=== PATIENT | male | born 1980 | race Caucasian/White ===

== ENCOUNTER → 2016-09-08 | Outpatient (REF) | payer OTHER, MEDICAID | LOC: M SFHCLERA 10:48 | PROVIDERS: ATTEND Physician Assistant | DX: M54.6 Pain in thoracic spine (principal) ==

== ENCOUNTER → 2016-09-08 | Outpatient (CLI) | payer OTHER ==
--- NOTE | 2016-09-08 10:49 | REP ---
KUB TWO VIEWS: HISTORY: Left-side pain. Air is present in small and large intestine. There are no air fluid levels or dilated loops of intestine. There is no pneumoperitoneum. A 10 mm calcification is present overlying the left kidney consistent with nephrolithiasis. IMPRESSION: Nonspecific bowel gas pattern. Signed by Juan Donnelly MD 09/08/2016 10:51 A
== END ==
LOC: M LRY 09:56
PROVIDERS: ATTEND Physician Assistant
DX: M54.14 Radiculopathy, thoracic region (principal)

== ENCOUNTER → 2016-09-22 | Outpatient (CLI) | payer OTHER | LOC: M RAD 13:45 | PROVIDERS: ATTEND Nurse Practitioner Family | DX: N20.0 Calculus of kidney (principal); K57.30 Diverticulosis of large intestine without perforation or abscess without bleeding ==

== ENCOUNTER → 2016-10-13 | Outpatient (REF) | payer OTHER, MEDICAID ==
[~2016-10-13] MED LIST: DITR5TAB PO; OXYC1TAB23 PO; TYLE325T5 PO
[2016-10-13 17:50] LABS: MEAN CORPUSCULAR HEMOGLOBIN 35.1 pg (27.0-33.0); MEAN CORPUSCULAR HGB CONC 34.3 g/dl (32.0-36.5); MEAN CORPUSCULAR VOLUME 102.3 fl (80.0-96.0); RED CELL DISTRIBUTION WIDTH 11.3 % (11.5-14.5); WHITE BLOOD COUNT 8.2 K/mm3 (4.0-10.0)
[2016-10-13 17:52] LABS: INR 1.04
[2016-10-13 18:49] LABS: ALBUMIN 3.7 GM/DL (3.2-5.2); ALBUMIN/GLOBULIN RATIO 1.19 (1.00-1.93); ALKALINE PHOSPHATASE 114 U/L (45-117); ALT/SGPT 40 U/L (12-78); ANION GAP 8 MEQ/L (8-16); AST/SGOT 23 U/L (15-37); BILIRUBIN,TOTAL 0.3 MG/DL (0.2-1.0); BLOOD UREA NITROGEN 12 MG/DL (7-18); CARBON DIOXIDE LEVEL 29 MEQ/L (21-32); CHLORIDE LEVEL 103 MEQ/L (98-107); CREATININE FOR GFR 1.11 MG/DL (0.70-1.30); GLOMERULAR FILTRATION RATE > 60.0 (>60); GLUCOSE, FASTING 82 MG/DL (70-105); POTASSIUM SERUM 4.1 MEQ/L (3.5-5.1); SODIUM LEVEL 140 MEQ/L (136-145); TOTAL PROTEIN 6.8 GM/DL (6.4-8.2)
[2016-10-17 00:15] LABS: Lyme Disease IgG Ab 18 kDa Ban Absent (.); Lyme Disease IgG Ab 23 kDa Ban Present (.); Lyme Disease IgG Ab 28 kDa Ban Absent (.); Lyme Disease IgG Ab 30 kDa Ban Absent (.); Lyme Disease IgG Ab 39 kDa Ban Absent (.); Lyme Disease IgG Ab 41 kDa Ban Present (.); Lyme Disease IgG Ab 45 kDa Ban Absent (.); Lyme Disease IgG Ab 58 kDa Ban Absent (.); Lyme Disease IgG Ab 66 kDa Ban Absent (.); Lyme Disease IgG Ab 93 kDa Ban Absent (.); Lyme Disease IgG West Blot Int Negative (.); Lyme Disease IgG/IgM Antibodie <0.91 ISR (0.00-0.90); Lyme Disease IgM Ab 23 kDa Ban Present (.); Lyme Disease IgM Ab 39 kDa Ban Absent (.); Lyme Disease IgM Ab 41 kDa Ban Absent (.); Lyme Disease IgM Ab Quantitati 2.59 index (0.00-0.79); Lyme Disease IgM West Blot Int Negative (.)
== END ==
LOC: M SFHCLERA 14:47
PROVIDERS: ATTEND Family Medicine
DX: Z01.812 Encounter for preprocedural laboratory examination (principal); A69.20 Lyme disease, unspecified; N20.0 Calculus of kidney

== ENCOUNTER → 2016-11-17 | Outpatient (REF) | payer MEDICAID, OTHER ==
[2016-11-17 17:36] LABS: MEAN CORPUSCULAR HEMOGLOBIN 34.7 pg (27.0-33.0); MEAN CORPUSCULAR VOLUME 99.1 fl (80.0-96.0); RED CELL DISTRIBUTION WIDTH 11.6 % (11.5-14.5); WHITE BLOOD COUNT 7.7 K/mm3 (4.0-10.0)
[2016-11-17 17:45] LABS: INR 0.93
[2016-11-17 19:47] LABS: ALBUMIN 3.9 GM/DL (3.2-5.2); ALBUMIN/GLOBULIN RATIO 1.26 (1.00-1.93); ALKALINE PHOSPHATASE 89 U/L (45-117); ALT/SGPT 54 U/L (12-78); ANION GAP 8 MEQ/L (8-16); AST/SGOT 23 U/L (15-37); BILIRUBIN,TOTAL 0.5 MG/DL (0.2-1.0); BLOOD UREA NITROGEN 10 MG/DL (7-18); CALCIUM LEVEL 9.1 MG/DL (8.5-10.1); CARBON DIOXIDE LEVEL 27 MEQ/L (21-32); CHLORIDE LEVEL 106 MEQ/L (98-107); CREATININE FOR GFR 0.84 MG/DL (0.70-1.30); GLOMERULAR FILTRATION RATE > 60.0 (>60); GLUCOSE, FASTING 82 MG/DL (70-105); POTASSIUM SERUM 4.2 MEQ/L (3.5-5.1); SODIUM LEVEL 141 MEQ/L (136-145)
== END ==
LOC: M LABSMT 11:18
PROVIDERS: ATTEND Nurse Practitioner Family
DX: N20.0 Calculus of kidney (principal); Z01.818 Encounter for other preprocedural examination

== ENCOUNTER → 2016-11-22 | Outpatient (CLI) | payer OTHER, MEDICAID ==
--- NOTE | 2016-11-22 12:46 | REP ---
PA and lateral chest: There are no comparisons. The lung jones are clear. The cardiac size is normal The thomas, mediastinum, and bony thorax are unremarkable. Impression: Negative PA and lateral chest. Signed by Hernandez Jeffery MD 11/22/2016 12:37 P
== END ==
LOC: M LRY 11:54
PROVIDERS: ATTEND Family Medicine
DX: Z01.810 Encounter for preprocedural cardiovascular examination (principal)

== ENCOUNTER → 2016-11-22 | Outpatient (REF) | payer OTHER, MEDICAID ==
[2016-11-22 18:23] LABS: ANION GAP 9 MEQ/L (8-16); BLOOD UREA NITROGEN 10 MG/DL (7-18); CARBON DIOXIDE LEVEL 27 MEQ/L (21-32); CHLORIDE LEVEL 107 MEQ/L (98-107); CREATININE FOR GFR 0.84 MG/DL (0.70-1.30); GLOMERULAR FILTRATION RATE > 60.0 (>60); GLUCOSE, FASTING 88 MG/DL (70-105); POTASSIUM SERUM 4.1 MEQ/L (3.5-5.1); SODIUM LEVEL 143 MEQ/L (136-145)
[2016-11-22 18:43] LABS: MEAN CORPUSCULAR HEMOGLOBIN 34.2 pg (27.0-33.0); MEAN CORPUSCULAR HGB CONC 33.2 g/dl (32.0-36.5); MEAN CORPUSCULAR VOLUME 102.8 fl (80.0-96.0); RED CELL DISTRIBUTION WIDTH 12.3 % (11.5-14.5); WHITE BLOOD COUNT 9.7 K/mm3 (4.0-10.0)
== END ==
LOC: M SFHCLERA 11:51
PROVIDERS: ATTEND Family Medicine
DX: Z01.812 Encounter for preprocedural laboratory examination (principal)

== ENCOUNTER 2016-11-29 08:38 | Inpatient (IN) | payer OTHER ==
[2016-11-29] VITALS (12 sets, daily range): BP systolic 121–153; BP diastolic 73–92; O2SAT 91–96
[~2016-11-29] VITALS: Ht 172.7 cm; Wt 77.1 kg
[2016-11-29] MEDS ORDERED: LR 1,000 ML IV ONE (08:45)
[2016-11-29] MEDS ORDERED: CONRAY-60 60% 50ML VIAL (Q9961) As Ordered ONE (12:05)
[2016-11-29] MEDS ORDERED: PROPOFOL 200 MG/20 ML VIAL As Ordered ONE (12:30)
[2016-11-29] MEDS ORDERED: MIDAZOLAM INJ 2 MG/2 ML VIAL (J2250) As Ordered ONE (12:30)
[2016-11-29] MEDS ORDERED: LIDOCAINE 2% INJ 100 MG/5 ML SDV (FOR ANES.) As Ordered ONE (12:30)
[2016-11-29] MEDS ORDERED: fentaNYL 100 MCG/2 ML INJECTION (J3010) As Ordered ONE (12:31)
[2016-11-29] MEDS ORDERED: ONDANSETRON 4MG/2ML VIAL (J2405) IV PRN ×2 (13:15→16:45)
[2016-11-29] MEDS ORDERED: PERCOCET 5MG/325MG TAB PO PRN ×3 (13:15→16:45)
[2016-11-29] MEDS ORDERED: ACETAMINOPHEN TAB 650MG DOSE (2X325MG) PO PRN (13:15)
[2016-11-29] MEDS ORDERED: MORPHINE 2 MG/ML 1ML SYRINGE IV PRN (13:15)
[2016-11-29] MEDS ORDERED: HYDROmorphone HCL 2 MG/ML 1ML VIAL (J1170) As Ordered ONE (14:09)
--- NOTE | 2016-11-29 16:17 | REP ---
C-ARM VIEWS ABDOMEN: Two C-ARM views of the abdomen are performed during intraoperative procedure performed by Dr. Willard. A nephroureterostomy tube is seen on the initial image. The second images shows a wire extending down the ureter with contrast partially opacifying the pelvicaliceal system. There appears to be a nephrostomy tube with the tip in the region of the renal pelvis. 2 minutes and 32 seconds of fluoroscopic time utilized. Signed by Hernandez Hall MD 11/29/2016 05:16 P
[2016-11-29 16:32] LABS: MEAN CORPUSCULAR HEMOGLOBIN 35.5 pg (27.0-33.0); MEAN CORPUSCULAR HGB CONC 35.5 g/dl (32.0-36.5); MEAN CORPUSCULAR VOLUME 100.2 fl (80.0-96.0); WHITE BLOOD COUNT 14.7 K/mm3 (4.0-10.0)
[2016-11-29] MEDS ORDERED: fentaNYL 100 MCG/2 ML INJECTION (J3010) IV PRN (16:45)
[2016-11-29] MEDS ORDERED: MEPERIDINE INJ 25 MG/ML VIAL (J2175) IV PRN (16:45)
[2016-11-29] MEDS ORDERED: METOCLOPRAMIDE INJ 10MG/2ML VIAL (J2765) IV PRN (16:45)
[2016-11-29] MEDS ORDERED: LR 1,000 ML IV SCH (16:45)
[2016-11-29] MEDS: NS 1,000 ML IV SCH (16:54)
[2016-11-29 17:16] LABS: ANION GAP 8 MEQ/L (8-16); BLOOD UREA NITROGEN 9 MG/DL (7-18); CALCIUM LEVEL 7.8 MG/DL (8.5-10.1); CARBON DIOXIDE LEVEL 26 MEQ/L (21-32); CHLORIDE LEVEL 111 MEQ/L (98-107); CREATININE FOR GFR 0.86 MG/DL (0.70-1.30); GLOMERULAR FILTRATION RATE > 60.0 (>60); GLUCOSE, FASTING 107 MG/DL (70-105); POTASSIUM SERUM 3.7 MEQ/L (3.5-5.1); SODIUM LEVEL 145 MEQ/L (136-145)
[2016-11-29] MEDS: DOCUSATE SODIUM 100 MG CAP PO SCH (20:13)
[2016-11-29] MEDS: ceFAZolin SOD 1 GM in D5W MINI-BAG PLUS 50 ML IV SCH (20:13)
[2016-11-30] VITALS: BP 114/65; O2SAT 97
[2016-11-30] MEDS: NS 1,000 ML IV SCH (03:46)
[2016-11-30 04:00] VITALS: BP 113/69; O2SAT 97
[2016-11-30] MEDS: ceFAZolin SOD 1 GM in D5W MINI-BAG PLUS 50 ML IV SCH (05:24)
[2016-11-30 07:19] LABS: MEAN CORPUSCULAR HEMOGLOBIN 34.7 pg (27.0-33.0); MEAN CORPUSCULAR HGB CONC 35.2 g/dl (32.0-36.5); MEAN CORPUSCULAR VOLUME 98.5 fl (80.0-96.0); RED CELL DISTRIBUTION WIDTH 11.5 % (11.5-14.5)
[2016-11-30 07:41] LABS: ANION GAP 6 MEQ/L (8-16); BLOOD UREA NITROGEN 7 MG/DL (7-18); CALCIUM LEVEL 8.9 MG/DL (8.5-10.1); CARBON DIOXIDE LEVEL 27 MEQ/L (21-32); CHLORIDE LEVEL 109 MEQ/L (98-107); GLOMERULAR FILTRATION RATE > 60.0 (>60); GLUCOSE, FASTING 104 MG/DL (70-105); POTASSIUM SERUM 3.9 MEQ/L (3.5-5.1); SODIUM LEVEL 142 MEQ/L (136-145)
[2016-11-30 08:00] VITALS: BP 128/70
--- NOTE | 2016-11-30 08:21 | IPNPDOC ---
Assessment/Plan Date Seen The patient was seen on 11/30/16. Patient Summary This is a 36 y/o M POD 1 s/p attempted left PCNL. He is doing well. Labs are w /i normal limits. UOP has been good. Plan/VTE VTE Prophylaxis Ordered?: Yes VTE Exclusion Mechanical Proph: N/A:VTE Prophy Ordered Plan/Urinary Catheter Urinary Catheter: D/C Figuerao Plan - left nephrostomy catheter removed this morning - will d/c Figueroa catheter in 1 hour - d/c IVF - percocet prn pain - regular diet - plan discharge home after patient voids Subjective Review oF Systems Chief Complaint The patient is a 36-year-old male admitted with a reason for visit of Nephrolithiasis. Events since Last Encounter No acute events o/n. Good pain control. No n/v. No f/c/ns. Objective Physical Examination General Exam: Alert, Cooperative, No Acute Distress Skin Exam: Nl turgor and temperature Neuro Exam: Normal Speech Psych Exam: Mental status NL, Mood NL Other physical findings catheter draining light pink urine; left nephrostomy tube draining dark pink urine; left flank incision w/o erythema Vital Signs/I&O Vital Signs Date Time Temp Pulse Resp B/P (MAP) Pulse Ox O2 Delivery O2 Flow Rate FiO2 11/30/16 04:00 97 Nasal Cannula 2.0 11/30/16 04:00 98.6 92 18 113/69 (84) I&O- Last 24 Hours up to 6 AM 11/30/16 05:59 Intake Total 5370 ml Output Total 2000 ml Balance 3370 ml Laboratory Data Labs 24H Laboratory Tests 2 11/29/16 16:19: Anion Gap 8, Glomerular Filtration Rate > 60.0, Blood Urea Nitrogen 9, Creatinine 0.86, Sodium Level 145, Potassium Level 3.7, Chloride Level 111H, Carbon Dioxide Level 26, Calcium Level 7.8L 11/30/16 06:59: Anion Gap 6L, Glomerular Filtration Rate > 60.0, Blood Urea Nitrogen 7, Creatinine 0.80, Sodium Level 142, Potassium Level 3.9, Chloride Level 109H, Carbon Dioxide Level 27, Calcium Level 8.9 CBC/BMP Laboratory Tests 11/29/16 16:19 Red Blood Count 3.89 L, Mean Corpuscular Volume 100.2 H, Mean Corpuscular Hemoglobin 35.5 H, Mean Corpuscular Hemoglobin Concent 35.5, Red Cell Distribution Width 12.0, Calcium Level 7.8 L 11/30/16 06:59 Red Blood Count 3.60 L, Mean Corpuscular Volume 98.5 H, Mean Corpuscular Hemoglobin 34.7 H, Mean Corpuscular Hemoglobin Concent 35.2, Red Cell Distribution Width 11.5, Calcium Level 8.9 EMILI GONCALVES MD Nov 30, 2016 08:21
[2016-11-30] MEDS: DOCUSATE SODIUM 100 MG CAP PO SCH (09:04)
[2016-11-30 09:48] VITALS: BP 113/69
[2016-11-30] MEDS ORDERED: OXYC1TAB23 PO (10:02)
[2016-11-30] MEDS ORDERED: TYLE325T5 PO (10:02)
--- NOTE | 2016-12-01 01:58 | RO ---
DATE OF PROCEDURE: 11/29/2016 PREPROCEDURE DIAGNOSIS: Left kidney stone. POSTPROCEDURE DIAGNOSIS: Left kidney stone. PROCEDURE: Attempted left percutaneous nephrolithotomy, left percutaneous panendoscopy, left antegrade nephrostogram with intraoperative interpretation of images, left ureteral stent placement. SURGEON: Dr. Clarence Willard DIGITAL ARCHIVIST: None. ANESTHESIA: General. OPERATIVE INDICATIONS: This is a 36-year-old male with a 1.4 cm left kidney stone. He was brought to the operating room today for a percutaneous nephrolithotomy for treatment of his left kidney stone. DESCRIPTION OF PROCEDURE: The patient was brought to the operating room and general anesthesia was induced. Prophylactic antibiotics were infused. He then had a Figueroa catheter placed under sterile conditions. He was then placed in a prone position in preparation for an attempted left percutaneous nephrolithotomy. Of note, the patient had a left nephroureteral stent placed previously by interventional radiology at [facility]. At this point, after the patient was prepped and draped, his previously placed nephroureteral stent was utilized to advance a super stiff guidewire down into the left collecting system. Of note, the patient's access to the kidney was through a mid pole calyx and not a lower pole calyx, which is what we normally do. At this point, after the wire was advanced down into the left collecting system, the nephroureteral stent was removed. An approximately 3-4 cm incision was made in the skin adjacent to the wire. A dual lumen ureteral catheter was then advanced down the left collecting system over the wire. An antegrade nephrostogram was performed, and it was negative for extravasation. Of note, the contrast did flow freely down into the ureter. At this point, the other lumen was utilized to advance a guidewire down the left collecting system. The dual lumen ureteral catheter was then removed leaving the two wires in place. The guidewire was secured to the drapes to serve as a safety wire. Next, a balloon dilator was advanced over the super stiff wire into the left collecting system. The balloon was then inflated and left in place for 30 seconds. I then advanced an access sheath over the balloon down into the left collecting system. The balloon was then let down and removed leaving the wire in place. I then went into the sheath, the nephroscope, and of note, this did not appear to have gained access into the kidney. I, therefore, removed the sheath and balloon dilated several additional times, and examined several additional times and at no point did it gain access into the renal pelvis. I tried to get access to each calyx. Of note, I was not able to torque the nephroscope to gain access to any of the calyces because of the mid pole access. After trying for approximately an hour and a half to gain access into the kidney, the decision was made to abort the procedure. At this point, the super stiff wire was utilized to advance a #7-Turkmen x 22-32 cm JJ ureteral stent down to the left collecting system. The wire was then removed and there were adequate curls of the stent in the left renal pelvis and in the bladder. Next, the access sheath was removed and the other wire was utilized to advance an #18-Turk[place] Good[place] Tip catheter down to the left collecting system. I then inflated the balloon with approximately 3 mL of contrast and then removed the wire. At this point, the nephrostomy catheter was secured to the skin with a #3-0 silk suture. The catheter was then connected to gravity drainage and dressings were applied. This marked the conclusion of the procedure. The patient was then taken out of prone position, awakened from anesthesia and transported to the recovery room in stable condition. Estimated blood loss was 50 mL. Complications: None. Specimens: None. Plan: The patient will be kept in the hospital overnight just to monitor for any potential bleeding. He will likely be discharged home tomorrow after his nephrostomy catheter and his Figueroa catheter are removed. The stent will be left in place. He will need to be brought back to the operating room at a later date, most likely for left ureteroscopy to try to treat his stone. ROSE MARIE
--- NOTE | 2016-12-01 17:41 | DSES ---
DATE OF ADMISSION: 11/29/2016 DATE OF DISCHARGE: 11/30/2016 ADMISSION DIAGNOSIS: Kidney stone. DISCHARGE DIAGNOSIS: Kidney stone. ADMITTING PHYSICIAN: Clarence Willard MD DISCHARGING PHYSICIAN: Clarence Willard MD PROCEDURE PERFORMED: Attempted left percutaneous nephrolithotomy. HISTORY OF PRESENT ILLNESS: This is a 36-year-old male with a large left kidney stone who was brought to the operating room on 11/29/2016 for attempted left percutaneous nephrolithotomy. He was admitted to the hospital postoperatively. HOSPITALIZATION COURSE: The patient's postoperative course was unremarkable. His pain was well-controlled with oral pain medications. On postoperative day one, all of his blood work was within normal limits. He is tolerating a regular diet. His left nephrostomy catheter was removed on postoperative day one. We subsequently removed his Figueroa catheter and he voided without any difficulty. He was subsequently discharged home in good condition on postoperative day one. The plan will be for him to followup in the clinic in a few weeks to discuss additional surgery on his left kidney stone.
[2016-12-22] MEDS ORDERED: DITR5TAB PO (15:24)
== END 2016-11-30 13:10 | disposition home or self-care (01) | DRG 443 ==
LOC: M OR 08:38 → M PED 18:00
PROVIDERS: ADMIT Urology; ATTEND Urology
PROC: 0TP94DZ Removal of Intraluminal Device from Ureter, Percutaneous Endoscopic Approach (ICD-10-PCS; 2016-11-29)
PROC: 0T9 Urinary System, Drainage (ICD-10-PCS; principal; 2016-11-29 10:40)
DX: N20.0 Calculus of kidney (principal); F17.210 Nicotine dependence, cigarettes, uncomplicated

== ENCOUNTER → 2016-12-08 | Outpatient (REF) | payer OTHER, MEDICAID | LOC: M LAB REF 09:40 | PROVIDERS: ATTEND Urology | DX: R30.0 Dysuria (principal) ==

== ENCOUNTER → 2016-12-21 | Outpatient (REF) | payer OTHER, MEDICAID ==
[2016-12-21 11:39] LABS: MEAN CORPUSCULAR HEMOGLOBIN 33.4 pg (27.0-33.0); MEAN CORPUSCULAR HGB CONC 32.9 g/dl (32.0-36.5); MEAN CORPUSCULAR VOLUME 101.4 fl (80.0-96.0); RED CELL DISTRIBUTION WIDTH 12.4 % (11.5-14.5); WHITE BLOOD COUNT 6.7 K/mm3 (4.0-10.0)
[2016-12-21 11:48] LABS: ANION GAP 6 MEQ/L (8-16); BLOOD UREA NITROGEN 10 MG/DL (7-18); CALCIUM LEVEL 9.6 MG/DL (8.5-10.1); CARBON DIOXIDE LEVEL 30 MEQ/L (21-32); CHLORIDE LEVEL 106 MEQ/L (98-107); CREATININE FOR GFR 0.83 MG/DL (0.70-1.30); GLOMERULAR FILTRATION RATE > 60.0 (>60); GLUCOSE, FASTING 92 MG/DL (70-105); POTASSIUM SERUM 4.6 MEQ/L (3.5-5.1); SODIUM LEVEL 142 MEQ/L (136-145)
== END ==
LOC: M LABSMT 07:41
PROVIDERS: ATTEND Urology
DX: Z01.812 Encounter for preprocedural laboratory examination (principal); N20.0 Calculus of kidney; N39.0 Urinary tract infection, site not specified

== ENCOUNTER 2016-12-24 08:26 | Day surgery (SDC) | payer OTHER ==
[~2016-12-24] VITALS: Ht 170.2 cm; Wt 77.1 kg
[2016-12-24] MEDS ORDERED: LIDOCAINE 2% INJ 100 MG/5 ML SDV (FOR ANES.) As Ordered ONE (09:27)
[2016-12-24] MEDS ORDERED: fentaNYL 100 MCG/2 ML INJECTION (J3010) As Ordered ONE ×2 (09:27→11:11)
[2016-12-24] MEDS ORDERED: MIDAZOLAM INJ 2 MG/2 ML VIAL (J2250) As Ordered ONE (09:27)
[2016-12-24] MEDS ORDERED: ROCURONIUM BROMIDE 50 MG/5 ML VIAL/SYRINGE As Ordered ONE (09:27)
[2016-12-24] MEDS ORDERED: PROPOFOL 200 MG/20 ML VIAL As Ordered ONE (09:27)
[2016-12-24] MEDS ORDERED: LR 1,000 ML IV ONE (10:15)
[2016-12-24] MEDS ORDERED: CONRAY-60 60% 50ML VIAL (Q9961) As Ordered ONE (10:27)
[2016-12-24] MEDS ORDERED: ONDANSETRON 4MG/2ML VIAL (J2405) As Ordered ONE ×2 (11:02→12:10)
[2016-12-24] MEDS ORDERED: KETOROLAC 60 MG/2 ML VIAL (J1885) As Ordered ONE (11:02)
--- NOTE | 2016-12-24 12:14 | REP ---
RETROGRADE PYELOGRAM: 12/24/2016. CLINICAL HISTORY: Nephrolithiasis. FINDINGS: Six images from C-arm fluoroscopy provided to Dr. Willard of the urology division performed. Images over the left ureter and collecting system show a wire into the collecting system with a catheter into the renal pelvis. On the third image, contrast is seen in the collecting system without definite filling defect or abnormal dilatation. A double pigtail stent is seen in the fifth and sixth images overlying the renal fossa for its proximal coils and in the left side of the bladder for its distal coils. Fluoroscopy time 17 seconds. Signed by Paul Rinaldi MD 12/24/2016 03:54 P
[2016-12-24] MEDS ORDERED: ONDANSETRON 4MG/2ML VIAL (J2405) IV PRN (12:15)
[2016-12-24] MEDS ORDERED: METOCLOPRAMIDE INJ 10MG/2ML VIAL (J2765) IV PRN (12:15)
[2016-12-24] MEDS ORDERED: PERCOCET 5MG/325MG TAB PO PRN ×3 (12:15→12:30)
[2016-12-24] MEDS ORDERED: MEPERIDINE INJ 25 MG/ML VIAL (J2175) IV PRN (12:15)
[2016-12-24] MEDS ORDERED: LR 1,000 ML IV SCH (12:15)
[2016-12-24] MEDS ORDERED: fentaNYL 100 MCG/2 ML INJECTION (J3010) IV PRN (12:15)
--- NOTE | 2016-12-24 12:20 | RO ---
DATE OF PROCEDURE: 12/24/2016 PREPROCEDURE DIAGNOSIS: Left kidney stone. POSTPROCEDURE DIAGNOSIS: Left kidney stone. PROCEDURE: Cystoscopy, left ureteroscopy with laser lithotripsy and basket extraction of stones, left retrograde pyelogram with intraoperative interpretation of images, left ureteral stent exchange. SURGEON: Dr. Clarence Willard. [employer]AD[employer] ROOM ATTENDANT: None. ANESTHESIA: General. INDICATION: This is a 36-year-old male who was brought to operating room about a month for an attempted left percutaneous nephrolithotomy to remove a large kidney stone. We were unable to remove the stone at that time due to inadequate access. Therefore, it was recommended he be brought to the operating room today for the above listed procedure. DESCRIPTION OF PROCEDURE: The patient was brought to the operating room and general anesthesia was induced. Prophylactic antibiotics were infused. He was then placed in the dorsal lithotomy position and prepped and draped in the usual sterile fashion. The rigid cystoscope was inserted into the urethral meatus and advanced into the bladder. Once it was in the bladder, the previously placed stent was grasped and withdrawn until the distal end was seen protruding from the urethral meatus. I then advanced a wire up the left ureteral stent and into the left collecting system. The stent was then removed leaving the wire in place. The wire was then utilized to advance a ureteral access sheath up into the collecting system. The stylet was removed and the wire was secured to the drape to serve as a safety wire. We then went up the access sheath with the flexible ureteroscope and within the lower pole of the left kidney, a large stone was seen. The stone was grasped with the basket and repositioned to the renal pelvis. At this point, the stone was fragmented into several smaller pieces using a 200 micron laser fiber. All of the small stone fragments then removed with the basket. Once all the stone fragments had been removed, I examined the kidney thoroughly and no large fragments were seen. A retrograde pyelogram was then performed and it was negative for extravasation. The ureteroscope was removed along with the access sheath and no additional stones were seen within the ureter. At this point, the previously placed wire was utilized to advance a #6-[place] x 22-32 cm JJ ureteral stent up into the left collecting system. The wire was then removed and there were adequate curls of the stent in the left renal pelvis and in the bladder. The bladder was then emptied of all fluid and this marked the conclusion of the procedure. The patient was then taken out of the doral lithotomy position, awakened from anesthesia and transported to the recovery room in stable condition. ESTIMATED BLOOD LOSS: 0 mL COMPLICATIONS: None. SPECIMENS: Kidney stone fragments. PLAN: The patient will followup in the clinic in a few weeks for stent removal. ROSE MARIE
[2016-12-24] MEDS ORDERED: oxyBUTYnin 5 MG TAB PO PRN (12:30)
[2016-12-24 13:45] VITALS: BP 121/91
== END 2016-12-24 14:45 | disposition home or self-care (01) ==
LOC: M SDC 08:26
PROVIDERS: ATTEND Urology
DX: N20.0 Calculus of kidney (principal); N39.0 Urinary tract infection, site not specified; R35.0 Frequency of micturition; Z79.899 Other long term (current) drug therapy; Z72.0 Tobacco use
CPT/HCPCS: 52356; 74420; 82360; 88300; 96374; C1769; C1894; C2617

== ENCOUNTER → 2017-07-14 | Outpatient (CLI) | payer OTHER | LOC: M SMT 09:09 | DX: N20.0 Calculus of kidney (principal) | CPT/HCPCS: 74018 ==

== ENCOUNTER 2023-05-27 11:18 | Emergency (ER) | payer MEDICAID, OTHER ==
[~2023-05-27] VITALS: Ht 170.2 cm; Wt 84.8 kg
[2023-05-27 12:48] LABS: BASO % 0.5 % (0.0-1.0); EOS # 0.1 10^3/uL (0.0-0.5); EOS % 1.1 % (0.0-3.0); HEMATOCRIT 49.1 % (42.0-52.0); HEMOGLOBIN 17.4 g/dl (13.5-17.5); LYMPH # 2.6 10^3/uL (1.5-5.0); MEAN CORPUSCULAR HEMOGLOBIN 35.7 pg (27.0-33.0); MEAN CORPUSCULAR HGB CONC 35.4 g/dl (32.0-36.5); MEAN CORPUSCULAR VOLUME 100.6 fl (80.0-96.0); MONO # 0.5 10^3/uL (0.0-0.8); MONO % 6.2 % (2.0-8.0); NEUTROPHILS # 4.1 10^3/uL (1.5-8.5); NEUTROPHILS % 56.5 % (36.0-66.0); PLATELET COUNT, AUTOMATED 236 10^3/uL (150-450); RED BLOOD COUNT 4.88 10^6/uL (4.30-6.10); WHITE BLOOD COUNT 7.3 10^3/uL (4.0-10.0)
[2023-05-27 13:06] LABS: LIPASE 33 U/L (12-53)
[2023-05-27 13:08] LABS: ALBUMIN 3.9 G/DL (3.2-5.2); ALKALINE PHOSPHATASE 92 U/L (46-116); ALT/SGPT 27 U/L (7.0-40); AST/SGOT 15 U/L (<34); BILIRUBIN,DIRECT 0.1 MG/DL (<0.4); BILIRUBIN,TOTAL 0.4 MG/DL (0.3-1.2); BLOOD UREA NITROGEN 8 MG/DL (9-23); CALCIUM LEVEL 9.3 MG/DL (8.5-10.1); CARBON DIOXIDE LEVEL 28 MMOL/L (20-31); CHLORIDE LEVEL 108 MMOL/L (98-107); CREATININE FOR GFR 0.72 MG/DL (0.70-1.30); GLOMERULAR FILTRATION RATE > 60.0 (>60); GLUCOSE, FASTING 95 MG/DL (60-100); POTASSIUM SERUM 4.4 MMOL/L (3.5-5.1); SODIUM LEVEL 140 MMOL/L (136-145); TOTAL PROTEIN 6.8 G/DL (5.7-8.2)
[2023-05-27] MEDS: KETOROLAC 30 MG/ML 1ML VIAL IV ONE (14:03)
[2023-05-27] MEDS ORDERED: HYDR-3713 PO (14:20)
[2023-05-27] MEDS ORDERED: ONDA4TAB6 PO (14:20)
[2023-05-27] MEDS ORDERED: IBUP-1022 PO (14:20)
[2023-05-27 14:36] VITALS: BP 141/91; TEMP 98.5; O2SAT 97
== END 2023-05-27 14:36 | disposition home or self-care (01) ==
LOC: M ED 11:18
DX: N20.0 Calculus of kidney (principal); N13.30 Unspecified hydronephrosis; K80.80 Other cholelithiasis without obstruction; F17.210 Nicotine dependence, cigarettes, uncomplicated; Z79.1 Long term (current) use of non-steroidal anti-inflammatories (NSAID); Z79.899 Other long term (current) drug therapy
CPT/HCPCS: 74176; 80048; 80076; 81001; 83690; 85025; 87086; 96374; 99284; J1885

== ENCOUNTER 2023-06-08 06:43 | Day surgery (SDC) | payer OTHER ==
[~2023-06-08] VITALS: Ht 170.2 cm; Wt 84.4 kg
[~2023-06-08 06:43] MED LIST changes: +HYDR-3713 PO; +IBUP-1022 PO; +ONDA4TAB6 PO
[2023-06-08] MEDS ORDERED: LR 1,000 ML IV SCH ×2 (07:50→11:05)
[2023-06-08] MEDS ORDERED: propofoL 200 MG/20 ML VIAL As Ordered ONE (08:06)
[2023-06-08] MEDS ORDERED: fentaNYL 100 MCG/2 ML INJECTION As Ordered ONE (08:06)
[2023-06-08] MEDS ORDERED: ONDANSETRON 4MG 2ML VIAL As Ordered ONE (08:06)
[2023-06-08] MEDS ORDERED: MIDAZOLAM INJ 2MG/2ML VIAL As Ordered ONE (08:06)
[2023-06-08] MEDS ORDERED: LIDOCAINE 2% 100MG/5ML SDV (FOR ANES.) As Ordered ONE (08:07)
[2023-06-08] MEDS ORDERED: ACETAMINOPHEN 1000MG 100ML IV BAG As Ordered ONE (09:27)
[2023-06-08] MEDS: ceFAZolin SOD 2 GM in IV 1 EA IV ONE (09:45)
[2023-06-08] MEDS: ISOVUE-300 61% 100ML VIAL As Ordered ONE (11:00)
[2023-06-08] MEDS ORDERED: HYDROMORPHONE HCL 0.5 MG/ 0.5 ML SYRINGE IV PRN (11:05)
[2023-06-08] MEDS ORDERED: oxyCODONE 5MG TAB PO PRN (11:05)
[2023-06-08] MEDS ORDERED: METOCLOPRAMIDE INJ 10MG/2ML VIAL IV PRN (11:05)
[2023-06-08] MEDS ORDERED: ONDANSETRON 4MG 2ML VIAL IV PRN (11:05)
[2023-06-08] MEDS ORDERED: fentaNYL 100 MCG/2 ML INJECTION IV PRN (11:05)
[2023-06-08] MEDS ORDERED: FLOM0.4C39 PO (11:50)
[2023-06-08 12:50] VITALS: BP 139/85; TEMP 97.8; O2SAT 97
== END 2023-06-08 13:00 | disposition home or self-care (01) ==
LOC: M SDC 06:43
PROVIDERS: ATTEND Urology
DX: N20.0 Calculus of kidney (principal); F17.210 Nicotine dependence, cigarettes, uncomplicated; Z79.891 Long term (current) use of opiate analgesic
CPT/HCPCS: 52356; 76000; 82365; C1769; C1894; C2617; J0131; J0690; J1100; J2250; J2405; J3010; Q9967

== ENCOUNTER → 2023-12-28 | Outpatient (CLI) | payer OTHER ==
[~2023-12-28] MED LIST changes: +FLOM0.4C39 PO; +ONDA-282 PO; -ONDA4TAB6 PO
== END ==
LOC: M RAD 16:16
PROVIDERS: ATTEND Urology
DX: N20.0 Calculus of kidney (principal)

== ENCOUNTER → 2024-12-27 | Outpatient (CLI) | payer OTHER ==
[~2024-12-27] MED LIST changes: -FLOM0.4C39 PO; -IBUP-1022 PO; +IBUP600T42 PO; +TAMS-18 PO
== END ==
LOC: M RAD 16:57
PROVIDERS: ATTEND Urology
DX: Z87.442 Personal history of urinary calculi (principal)